=== PATIENT | male | born 1990 | race Caucasian/White ===

== ENCOUNTER 2017-06-02 12:50 | Emergency (ER) | payer OTHER ==
[~2017-06-02] VITALS: Ht 167.6 cm; Wt 56.0 kg
[~2017-06-02 12:50] MED LIST: ADDERALL30 MG PO; AUGMENTIN875 MG PO; BACTRIM,SEPT1 TABLET PO; CLEOCIN300 MG PO; KEFLEX500 MG PO; LIDODERM 5% P1 PATCH TD; LODINE300 MG PO; NAPROSYN500 MG PO; NOHOMEMEDS; PROZAC20 MG PO; SEROQUEL100 MG PO; TYLENOL WITH C1 EACH PO; ULTRAM50 MG PO; ZOFRAN4 MG PO
[2017-06-02 13:15] LABS: HEMATOCRIT 43.4 % (38.0-50.0); MCHC 33.9 G/DL (30.0-36.0); MCV 94.3 FL (86-99); MEAN PLAT.VOLUME 9.7 uM^3 (9.0-12.4); PLATELET COUNT 359 K/uL (156-360); RBC DIS.WIDTH-CV 12.1 % (11.8-14.6); RBC DIS.WIDTH-SD 42.1 % (39-53); WHITE BLOOD COUNT 6.3 K/uL (4.1-10.2)
[2017-06-02 13:23] LABS: CHLORIDE 105 mEq/L (99-109); POTASSIUM 4.4 mEq/L (3.7-5.4); SODIUM 142 mEq/L (136-147)
[2017-06-02 13:25] LABS: GLUCOSE 91 mg/dL (70-99)
[2017-06-02 13:27] LABS: ANION GAP 12 MEQ/L (2-14)
[2017-06-02 13:28] LABS: SERUM ETHYL ALCOHOL < 10 mg/dL
[2017-06-02 13:29] LABS: GFR ESTIMATE (CALCULATED) > 59 mL/min/
[2017-06-02 13:30] LABS: UREA NITROGEN (BUN) 14 mg/dL (9-23)
[2017-06-02 15:11] VITALS: BP 120/80
== END 2017-06-02 15:15 | disposition left against medical advice (07) ==
LOC: EME 12:50
PROVIDERS: Emergency Medicine
DX: T50.991A Poisoning by other drugs, medicaments and biological substances, accidental (unintentional), initial encounter (principal); R56.9 Unspecified convulsions; F17.200 Nicotine dependence, unspecified, uncomplicated
CPT/HCPCS: 70450; 80048; 85027; 99281; 99285; G0480; J2405; J7030

== ENCOUNTER 2017-06-06 15:56 | Emergency (ER) | payer OTHER ==
[~2017-06-06] VITALS: Ht 177.8 cm; Wt 69.9 kg
[2017-06-06 17:26] VITALS: BP 101/60
== END 2017-06-06 17:08 | disposition home or self-care (01) ==
LOC: EME 15:56
DX: T40.991A Poisoning by other psychodysleptics [hallucinogens], accidental (unintentional), initial encounter (principal); F31.9 Bipolar disorder, unspecified; F20.9 Schizophrenia, unspecified; F17.200 Nicotine dependence, unspecified, uncomplicated
CPT/HCPCS: 93005

== ENCOUNTER 2017-06-07 15:23 | Emergency (ER) | payer OTHER ==
[~2017-06-07] VITALS: Ht 172.7 cm; Wt 97.9 kg
[2017-06-07 17:49] VITALS: BP 129/78
== END 2017-06-07 17:50 | disposition left against medical advice (07) ==
LOC: EME → EDBD 15:23 → EME 15:23
DX: F16.10 Hallucinogen abuse, uncomplicated (principal); F31.9 Bipolar disorder, unspecified; F20.9 Schizophrenia, unspecified; F17.200 Nicotine dependence, unspecified, uncomplicated
CPT/HCPCS: 93005; 99281; 99284

== ENCOUNTER 2017-06-20 23:41 | Emergency (ER) | payer OTHER ==
[~2017-06-20] VITALS: Ht 172.7 cm; Wt 58.8 kg
[2017-06-21 02:58] VITALS: BP 110/71
== END 2017-06-21 02:59 | disposition home or self-care (01) ==
LOC: EME 23:41
DX: F19.10 Other psychoactive substance abuse, uncomplicated (principal); F31.9 Bipolar disorder, unspecified; F20.9 Schizophrenia, unspecified; F17.200 Nicotine dependence, unspecified, uncomplicated
CPT/HCPCS: 99281; 99284

== ENCOUNTER 2017-07-23 15:33 | Emergency (ER) | payer OTHER ==
[~2017-07-23] VITALS: Ht 172.7 cm; Wt 97.9 kg
[2017-07-23 16:38] LABS: AMPHETAMINE NEGATIVE (500 ng/mL); BARBITURATES NEGATIVE (200 ng/mL); BENZODIAZEPINES NEGATIVE (150 ng/mL); BUPRENORPHINE NEGATIVE (10 ng/mL); COCAINE NEGATIVE (150 ng/mL); METHADONE NEGATIVE (200 ng/mL); METHAMPHETAMINE NEGATIVE (500 ng/mL); OPIATES (MORPHINE) NEGATIVE (100 ng/mL); OXYCODONE NEGATIVE (100 ng/mL); PHENCYCLIDINE NEGATIVE (25 ng/mL); PROPOXYPHENE NEGATIVE (300 ng/mL); THC CANNABINOIDS NEGATIVE (50 ng/mL); TRICYCLIC ANTIDEPRESSANTS NEGATIVE (300 ng/mL)
[2017-07-23 16:43] LABS: HEMATOCRIT 44.1 % (38.0-50.0); HEMOGLOBIN 15.6 G/DL (12.5-16.6); MCH 31.8 PG (29.0-34.0); MCHC 35.4 G/DL (30.0-36.0); PLATELET COUNT 279 K/uL (156-360); RBC DIS.WIDTH-CV 11.9 % (11.8-14.6); RBC DIS.WIDTH-SD 39.7 % (39-53); WHITE BLOOD COUNT 9.8 K/uL (4.1-10.2)
[2017-07-23 16:44] LABS: CARBON DIOXIDE (BICARBONATE) 27.7 MEQ/L (20-31)
[2017-07-23 16:55] LABS: ALBUMIN 4.1 g/dL (3.2-4.8); CHLORIDE 106 mEq/L (99-109); POTASSIUM 3.6 mEq/L (3.7-5.4); SODIUM 140 mEq/L (136-147)
[2017-07-23 16:57] LABS: GLUCOSE 99 mg/dL (70-99); TOTAL PROTEIN 7.2 g/dL (6.4-8.3)
[2017-07-23 16:59] LABS: TOTAL BILIRUBIN 0.6 mg/dL (0.0-1.0)
[2017-07-23 17:00] LABS: SERUM ETHYL ALCOHOL < 10 mg/dL
[2017-07-23 17:01] LABS: CREATININE 1.1 mg/dL (0.6-1.3); GFR ESTIMATE (CALCULATED) > 59 mL/min/ (58.99-99999)
[2017-07-23 17:02] LABS: ALKALINE PHOSPHATASE 52 IU/L (3-129); AST (GOT) 28 IU/L (2-34)
[2017-07-23 17:03] LABS: UREA NITROGEN (BUN) 15 mg/dL (9-23)
[2017-07-23 17:04] LABS: SALICYLATE < 5.0 MG/DL (15-30)
[2017-07-23 17:05] LABS: ACETAMINOPHEN (TYLENOL) < 10 mcg/mL (10-30); ALT (GPT) 50 IU/L (3-49); CREATINE KINASE 240 IU/L (1-294)
[2017-07-23 19:37] VITALS: BP 158/105
== END 2017-07-23 19:39 | disposition home or self-care (01) ==
LOC: EME 15:33
PROVIDERS: Emergency Medicine
DX: R45.1 Restlessness and agitation (principal); F31.9 Bipolar disorder, unspecified; F16.20 Hallucinogen dependence, uncomplicated; F71 Moderate intellectual disabilities; F20.9 Schizophrenia, unspecified; F90.9 Attention-deficit hyperactivity disorder, unspecified type; F17.200 Nicotine dependence, unspecified, uncomplicated
CPT/HCPCS: 80053; 82550; 82803; 85027; 90839; 93005; 99281; 99284; G0480; J2060; J7030

== ENCOUNTER 2017-08-11 11:35 | Emergency (ER) | payer OTHER ==
[~2017-08-11] VITALS: Ht 175.3 cm; Wt 61.4 kg
[2017-08-11 12:15] LABS: APPEARANCE CLEAR ((CLEAR)); BILIRUBIN NEGATIVE; BLOOD NEGATIVE; COLOR YELLOW ((YELLOW)); GLUCOSE (STRIP) NEGATIVE; KETONES NEGATIVE; LEUKOCYTES NEGATIVE; NITRITE NEGATIVE; PROTEIN (STRIP) NEGATIVE; SPECIFIC GRAVITY 1.006 (1.000-1.030); UROBILINOGEN 0.2 MG/DL (0.2-1.0)
[2017-08-11 12:24] LABS: AMPHETAMINE NEGATIVE (500 ng/mL); BARBITURATES NEGATIVE (200 ng/mL); BENZODIAZEPINES NEGATIVE (150 ng/mL); BUPRENORPHINE NEGATIVE (10 ng/mL); COCAINE NEGATIVE (150 ng/mL); METHADONE NEGATIVE (200 ng/mL); METHAMPHETAMINE NEGATIVE (500 ng/mL); OPIATES (MORPHINE) NEGATIVE (100 ng/mL); OXYCODONE NEGATIVE (100 ng/mL); PHENCYCLIDINE NEGATIVE (25 ng/mL); PROPOXYPHENE NEGATIVE (300 ng/mL); THC CANNABINOIDS NEGATIVE (50 ng/mL); TRICYCLIC ANTIDEPRESSANTS NEGATIVE (300 ng/mL)
[2017-08-11 12:41] LABS: CHLORIDE 110 mEq/L (99-109); POTASSIUM 4.9 mEq/L (3.7-5.4); SODIUM 141 mEq/L (136-147)
[2017-08-11 12:43] LABS: BASOPHIL COUNT 0.1 K/uL (0-0.1); EOSINOPHIL (%) 1.4 % (0-5); EOSINOPHIL COUNT 0.1 K/uL (0-0.3); GLUCOSE 82 mg/dL (70-99); HEMATOCRIT 46.1 % (38.0-50.0); HEMOGLOBIN 15.6 G/DL (12.5-16.6); IMMATURE GRANULOCYTE (%) 0.5 % (0.0-0.7); LYMPHOCYTE (%) 21.1 % (15-42); LYMPHOCYTE COUNT 1.3 K/uL (1.0-2.8); MCH 31.8 PG (29.0-34.0); MCHC 33.8 G/DL (30.0-36.0); MONOCYTE (%) 5.9 % (3-12); MONOCYTE COUNT 0.4 K/uL (0-0.8); NEUTROPHIL (%) 70.1 % (45-76); NEUTROPHIL COUNT 4.4 K/uL (1.8-6.4); RBC DIS.WIDTH-CV 12.9 % (11.8-14.6); RBC DIS.WIDTH-SD 44.2 % (39-53); WHITE BLOOD COUNT 6.3 K/uL (4.1-10.2)
[2017-08-11 12:44] LABS: MCV 94.1 FL (86-99)
[2017-08-11 12:46] LABS: CREATININE 0.8 mg/dL (0.6-1.3); GFR ESTIMATE (CALCULATED) > 59 mL/min/ (58.99-99999); SERUM ETHYL ALCOHOL < 10 mg/dL
[2017-08-11 12:47] LABS: UREA NITROGEN (BUN) 8 mg/dL (9-23)
[2017-08-11 13:33] LABS: PLATELET CLUMPS PRESENT - PLATELET COUNT APPEARS ADQ.; PLATELET COUNT UNABLE TO REPORT K/uL (156-360)
[2017-08-11 14:01] VITALS: BP 119/73
== END 2017-08-11 14:03 | disposition home or self-care (01) ==
LOC: EME 11:35
PROVIDERS: Emergency Medicine
DX: T40.991A Poisoning by other psychodysleptics [hallucinogens], accidental (unintentional), initial encounter (principal); F31.9 Bipolar disorder, unspecified; F20.9 Schizophrenia, unspecified; F17.200 Nicotine dependence, unspecified, uncomplicated
CPT/HCPCS: 80048; 81003; 85025; 99281; 99284; G0480

== ENCOUNTER 2017-10-14 12:00 | Emergency (ER) | payer OTHER ==
[~2017-10-14] VITALS: Ht 175.3 cm; Wt 62.4 kg
[2017-10-14 14:35] LABS: HEMATOCRIT 43.3 % (38.0-50.0); HEMOGLOBIN 14.9 G/DL (12.5-16.6); MCH 32.1 PG (29.0-34.0); MCHC 34.4 G/DL (30.0-36.0); MCV 93.3 FL (86-99); PLATELET COUNT 302 K/uL (156-360); RBC DIS.WIDTH-CV 12.2 % (11.8-14.6); RBC DIS.WIDTH-SD 41.6 % (39-53); RED BLOOD COUNT 4.64 M/uL (4.00-5.50); WHITE BLOOD COUNT 12.6 K/uL (4.1-10.2)
[2017-10-14 14:44] LABS: CHLORIDE 106 mEq/L (99-109); POTASSIUM 3.8 mEq/L (3.7-5.4); SODIUM 144 mEq/L (136-147)
[2017-10-14 14:45] LABS: GLUCOSE 99 mg/dL (70-99)
[2017-10-14 14:49] LABS: GFR ESTIMATE (CALCULATED) > 59 mL/min/ (58.99-99999)
[2017-10-14 14:50] LABS: UREA NITROGEN (BUN) 14 mg/dL (9-23)
[2017-10-14 15:02] LABS: APPEARANCE SL.HAZY ((CLEAR)); BILIRUBIN NEGATIVE; BLOOD NEGATIVE; COLOR YELLOW ((YELLOW)); GLUCOSE (STRIP) NEGATIVE; KETONES NEGATIVE; LEUKOCYTES NEGATIVE; NITRITE NEGATIVE; PROTEIN (STRIP) 30; SPECIFIC GRAVITY 1.025 (1.000-1.030); UROBILINOGEN 0.2 MG/DL (0.2-1.0)
[2017-10-14 15:12] LABS: AMPHETAMINE NEGATIVE (500 ng/mL); BARBITURATES NEGATIVE (200 ng/mL); BENZODIAZEPINES NEGATIVE (150 ng/mL); BUPRENORPHINE NEGATIVE (10 ng/mL); COCAINE NEGATIVE (150 ng/mL); METHADONE NEGATIVE (200 ng/mL); METHAMPHETAMINE NEGATIVE (500 ng/mL); OPIATES (MORPHINE) NEGATIVE (100 ng/mL); OXYCODONE NEGATIVE (100 ng/mL); PHENCYCLIDINE NEGATIVE (25 ng/mL); PROPOXYPHENE NEGATIVE (300 ng/mL); THC CANNABINOIDS NEGATIVE (50 ng/mL); TRICYCLIC ANTIDEPRESSANTS NEGATIVE (300 ng/mL)
[2017-10-14 15:22] LABS: BACTERIA RARE /HPF; EPITHELIAL CELLS RARE /HPF; MUCUS 1+ /LPF; RED BLOOD CELLS 0-5 /HPF (0-5); UCUL ADDED? NO; WHITE BLOOD CELLS 0-5 /HPF (0-5)
[2017-10-14 15:33] VITALS: BP 137/72
== END 2017-10-14 15:35 | disposition home or self-care (01) ==
LOC: EME 12:00
PROVIDERS: Emergency Medicine
DX: S00.83XA Contusion of other part of head, initial encounter (principal); F19.10 Other psychoactive substance abuse, uncomplicated; S00.01XA Abrasion of scalp, initial encounter; W18.30XA Fall on same level, unspecified, initial encounter; F17.200 Nicotine dependence, unspecified, uncomplicated
CPT/HCPCS: 70450; 70486; 80048; 81003; 85027; 99281; 99283

== ENCOUNTER 2017-10-30 22:47 | Emergency (ER) | payer OTHER ==
[~2017-10-30] VITALS: Ht 172.7 cm; Wt 60.4 kg
[2017-10-30 23:31] LABS: HEMATOCRIT 46.3 % (38.0-50.0); HEMOGLOBIN 16.1 G/DL (12.5-16.6); MCHC 34.8 G/DL (30.0-36.0); PLATELET COUNT 229 K/uL (156-360); RBC DIS.WIDTH-CV 12.3 % (11.8-14.6); RBC DIS.WIDTH-SD 41.7 % (39-53); RED BLOOD COUNT 5.03 M/uL (4.00-5.50); WHITE BLOOD COUNT 8.2 K/uL (4.1-10.2)
[2017-10-30 23:41] LABS: CHLORIDE 101 mEq/L (99-109); POTASSIUM 4.4 mEq/L (3.7-5.4); SODIUM 139 mEq/L (136-147)
[2017-10-30 23:43] LABS: GLUCOSE 90 mg/dL (70-99)
[2017-10-30 23:47] LABS: CREATININE 1.2 mg/dL (0.6-1.3); GFR ESTIMATE (CALCULATED) > 59 mL/min/ (58.99-99999)
[2017-10-30 23:48] LABS: UREA NITROGEN (BUN) 9 mg/dL (9-23)
[2017-10-31] MEDS ORDERED: TESSALON PERLE100 MG PO (03:45)
[2017-10-31] MEDS ORDERED: AZITHROMYCIN250 MG1 PO (03:46)
[2017-10-31 04:13] VITALS: BP 110/72
== END 2017-10-31 04:14 | disposition home or self-care (01) ==
LOC: EME 22:47
DX: J20.9 Acute bronchitis, unspecified (principal); F17.200 Nicotine dependence, unspecified, uncomplicated; Z71.6 Tobacco abuse counseling
CPT/HCPCS: 71046; 80048; 85027; 99281; 99284

== ENCOUNTER 2017-12-05 14:26 | Emergency (ER) | payer OTHER ==
[~2017-12-05] VITALS: Ht 172.7 cm; Wt 57.3 kg
[~2017-12-05 14:26] MED LIST changes: +AZITHROMYCIN250 MG1 PO; +TESSALON PERLE100 MG PO
[2017-12-05] MEDS ORDERED: PERCOCET 5/31 TABLET PO (15:47)
[2017-12-05 16:15] VITALS: BP 121/68
== END 2017-12-05 16:17 | disposition home or self-care (01) ==
LOC: EME 14:26
DX: S22.31XA Fracture of one rib, right side, initial encounter for closed fracture (principal); W50.1XXA Accidental kick by another person, initial encounter; Y93.72 Activity, wrestling; F17.200 Nicotine dependence, unspecified, uncomplicated
CPT/HCPCS: 71101; 93005; 94010; 99281; 99284

== ENCOUNTER 2017-12-14 17:07 | Emergency (ER) | payer OTHER ==
[~2017-12-14] VITALS: Ht 172.7 cm; Wt 58.4 kg
[~2017-12-14 17:07] MED LIST changes: +PERCOCET 5/31 TABLET PO
[2017-12-14 18:06] LABS: HEMATOCRIT 41.7 % (38.0-50.0); HEMOGLOBIN 14.6 G/DL (12.5-16.6); MCH 31.8 PG (29.0-34.0); MCV 90.8 FL (86-99); RBC DIS.WIDTH-CV 11.9 % (11.8-14.6); RBC DIS.WIDTH-SD 39.7 % (39-53); RED BLOOD COUNT 4.59 M/uL (4.00-5.50); WHITE BLOOD COUNT 6.2 K/uL (4.1-10.2)
[2017-12-14 18:15] LABS: D-DIMER ELISA < 150.00 ng/mLDDU (<230)
[2017-12-14 18:17] LABS: CHLORIDE 108 mEq/L (99-109); POTASSIUM 3.9 mEq/L (3.7-5.4); SODIUM 142 mEq/L (136-147)
[2017-12-14 18:19] LABS: GLUCOSE 87 mg/dL (70-99)
[2017-12-14 18:23] LABS: GFR ESTIMATE (CALCULATED) > 59 mL/min/ (58.99-99999)
[2017-12-14 18:24] LABS: UREA NITROGEN (BUN) 8 mg/dL (9-23)
[2017-12-14 18:39] LABS: PLAT.SUFFICIENCY ADEQUATE; PLATELET COUNT 201 K/uL (156-360)
[2017-12-14 19:06] VITALS: BP 131/77
== END 2017-12-14 19:12 | disposition home or self-care (01) ==
LOC: EME 17:07
PROVIDERS: Emergency Medicine
DX: R04.2 Hemoptysis (principal); S22.31XD Fracture of one rib, right side, subsequent encounter for fracture with routine healing; Y09 Assault by unspecified means; F31.9 Bipolar disorder, unspecified; F17.200 Nicotine dependence, unspecified, uncomplicated; Z86.69 Personal history of other diseases of the nervous system and sense organs
CPT/HCPCS: 71046; 80048; 85027; 85379; 99281; 99285